=== PATIENT | female | born 1965 | race Caucasian/White ===

== ENCOUNTER → 2017-12-22 | Outpatient (REF) | payer MEDICARE ==
[2017-12-25 14:10] LABS: HPV HYBRID CAPTURE II Negative (Negative)
== END ==
LOC: M LAB REF 13:09
DX: Z12.4 Encounter for screening for malignant neoplasm of cervix (principal)
CPT/HCPCS: G0123

== ENCOUNTER → 2018-12-19 | Outpatient (REF) | payer MEDICARE ==
[~2018-12-19] MED LIST: ABIL1TAB13 PO; CELE40TA PO; DIVA1CAP PO; GEMF600T5 PO; HYDR-3713 PO; LISI10TA4 PO; METF500T13 PO; METO1TAB7 PO; METO50TA7 PO; OMEP40CA2 PO; PREG100CA PO; SPIR50TA4 PO; SYNT50TA PO; TIZA4CAP PO; TRAZ1TAB14 PO; WELL100T PO; WELL200T PO; vitaminD PO
[2018-12-19 15:12] LABS: CHLAMYDIA DNA AMPLIFICATION NEGATIVE (NEGATIVE); GC DNA AMPLIFICATION NEGATIVE (NEGATIVE)
== END ==
LOC: M LAB REF 12:55
PROVIDERS: ATTEND Advanced Practice Midwife
DX: Z11.3 Encounter for screening for infections with a predominantly sexual mode of transmission (principal)

== ENCOUNTER → 2018-12-19 | Outpatient (CLI) | payer MEDICARE ==
[2018-12-19 13:27] LABS: HCG, SERUM QUALITATIVE NEGATIVE (NEGATIVE)
[2018-12-21 00:07] LABS: HSV IgM TYPES 1&2 3.26 Ratio (0.00-0.90); HSV TYPE I IgG SPECIFIC 1.05 index (0.00-0.90)
== END ==
LOC: M SMT 10:07
PROVIDERS: ATTEND Advanced Practice Midwife
DX: Z11.3 Encounter for screening for infections with a predominantly sexual mode of transmission (principal); N95.0 Postmenopausal bleeding

== ENCOUNTER → 2019-02-21 | Outpatient (CLI) | payer MEDICARE ==
[~2019-02-21] MED LIST changes: +APRI0.37 PO; +ATOR1TAB21 PO; +BREO1INH INH; +BUDE3CAP PO; +D3 U5000 PO; +JANU100T PO; +[UNRECOGNIZED DRUG - CODE] PO
--- NOTE | 2019-02-22 08:45 | REP ---
REASON FOR EXAM: Kidney disease. PRIORS: None. FINDINGS: Multiple ultrasonographic images of the right kidney show the right kidney to measure 11.2 x 5.8 x 5.2 cm The renal cortical echotexture is unremarkable. There are no masses. There is good corticomedullary differentiation. There is no hydronephrosis. There are no perinephric fluid collections. Multiple ultrasonographic images of the left kidney show the left kidney to measure 11.1 x 4.7 x 5.2 cm. The renal cortical echotexture is unremarkable. There are no masses. There is good corticomedullary differentiation. There is no hydronephrosis. There are no perinephric fluid collections. Limited evaluation of the urinary bladder shows no gross abnormality. IMPRESSION: Unremarkable renal ultrasonography. Electronically Signed by Haim Lawson DO 02/22/2019 09:47 A
== END ==
LOC: M RAD 13:43
PROVIDERS: ATTEND Internal Medicine Nephrology
DX: N18.3 Chronic kidney disease, stage 3 (moderate) (principal)

== ENCOUNTER 2019-03-24 13:52 | Day surgery (SDC) | payer MEDICARE ==
[~2019-03-24] VITALS: Ht 162.6 cm; Wt 87.9 kg
[~2019-03-24 13:52] MED LIST changes: +LIDOCAINE 1% MDV 20ML VIAL SQ PRN; +LR 1,000 ML IV ONE; +XALA0.007 OU
[2019-03-24 14:28] LABS: HEMATOCRIT 42.3 % (36.0-47.0); HEMOGLOBIN 13.4 g/dl (12.0-15.5); MEAN CORPUSCULAR HEMOGLOBIN 27.2 pg (27.0-33.0); MEAN CORPUSCULAR HGB CONC 31.7 g/dl (32.0-36.5); MEAN CORPUSCULAR VOLUME 85.8 fl (80.0-96.0); PLATELET COUNT, AUTOMATED 363 10^3/uL (150-450); RED BLOOD COUNT 4.93 10^6/uL (4.00-5.40); WHITE BLOOD COUNT 11.4 10^3/uL (4.0-10.0)
[2019-03-24] MEDS ORDERED: fentaNYL 100 MCG/2 ML INJECTION (J3010) As Ordered ONE (15:26)
[2019-03-24] MEDS ORDERED: dexameTHASONE 4 MG/ML 1ML VIAL (J1100) As Ordered ONE (15:26)
[2019-03-24] MEDS ORDERED: MIDAZOLAM INJ 2 MG/2 ML VIAL (J2250) As Ordered ONE (15:26)
[2019-03-24] MEDS ORDERED: PROPOFOL 200 MG/20 ML VIAL As Ordered ONE (15:27)
[2019-03-24] MEDS ORDERED: LIDOCAINE 2% INJ 100 MG/5 ML SDV (FOR ANES.) As Ordered ONE (15:27)
[2019-03-24] MEDS ORDERED: ONDANSETRON 4MG/2ML VIAL (J2405) As Ordered ONE (15:27)
[2019-03-24] MEDS ORDERED: KETOROLAC 60 MG/2 ML VIAL (J1885) As Ordered ONE (16:18)
[2019-03-24] MEDS ORDERED: LR 1,000 ML IV SCH ×2 (17:00→17:15)
[2019-03-24] MEDS ORDERED: ONDANSETRON 4MG/2ML VIAL (J2405) IV PRN (17:00)
[2019-03-24] MEDS ORDERED: fentaNYL 100 MCG/2 ML INJECTION (J3010) IV PRN (17:00)
[2019-03-24] MEDS: PERCOCET 5MG/325MG TAB PO PRN ×3 (17:07→17:40)
[2019-03-24 19:00] VITALS: BP 112/61
--- NOTE | 2019-03-27 12:59 | RO ---
DATE OF PROCEDURE: 03/24/2019 PREOPERATIVE DIAGNOSIS: Postmenopausal bleeding. POSTOPERATIVE DIAGNOSIS: Postmenopausal bleeding. PROCEDURE PERFORMED: Hysteroscopy, dilation and curettage (D and C). SURGEON: Abhilash Montoya DO DECATIZER: None. ANESTHESIA TYPE: General via laryngeal mask airway (LMA) anesthesia. SPECIMENS SENT TO PATHOLOGY: 1. Endometrial biopsy by Pipelle. 2. Endometrial curettings. ESTIMATED BLOOD LOSS: 10 mL. FLUIDS REPLACED: 800 mL lactated Ringer. COMPLICATIONS: None. DRAINS: In-and-out catheter, 100 mL of urine output. PREOPERATIVE ANTIBIOTICS: None indicated. INDICATION: The patient is a 54-year-old with postmenopausal bleeding. The decision was made to proceed with a hysteroscopy, D and C under anesthesia after counseling in the office. INTRAOPERATIVE FINDINGS: Stenotic os. Uterus sounded to 7 cm. There was no mass on hysteroscopic examination. DESCRIPTION OF PROCEDURE: The patient was counseled and consented on the risks, benefits, indications, and alternatives of the procedure. Informed consent was obtained. She was taken to the operating room with an IV running, placed on the operating table in the dorsal supine position. General anesthesia was administered and airway secured without any difficulty. She was then placed in the high lithotomy position. She was prepared and draped in the normal sterile fashion. A time-out was performed per protocol. The bladder was drained with a sterile in-and-out catheter. The sterile speculum was placed with good visualization of the cervix. The anterior lip of the cervix was grasped with a single-tooth tenaculum, and downward traction was applied. The cervix was sounded to 7 cm. The cervix was sequentially dilated with Matias dilators up to a #18, and then hysteroscope was placed transcervically into the intrauterine cavity with findings noted above. Given the lack of findings, the hysteroscope was removed, and the EndoCell endometrial Pipelle was placed to the level of the fundus, and suction was applied to obtain endometrial tissue. This was done in multiple passes until an adequate amount of tissue was obtained. The Pipelle was removed. The curette was then placed transcervically into the intrauterine cavity, and a sharp curettage was performed throughout the cavity with minimal tissue return. A gritty texture was noted throughout the cavity. The curette was removed. Minimal bleeding from the cervical os was noted. The tenaculum was removed, and the tenaculum sites were noted to be hemostatic. All instruments were removed from the vagina, and sponge and instrument counts were correct per protocol. The patient tolerated the procedure very well. She was transferred to the postanesthesia care unit (PACU) in good and stable condition. LILIAN
== END 2019-03-24 19:10 | disposition home or self-care (01) ==
LOC: M SDC 13:52
PROVIDERS: ATTEND Obstetrics & Gynecology
DX: N95.0 Postmenopausal bleeding (principal); I10 Essential (primary) hypertension; E11.9 Type 2 diabetes mellitus without complications; E78.5 Hyperlipidemia, unspecified; K21.9 Gastro-esophageal reflux disease without esophagitis; G47.30 Sleep apnea, unspecified; F41.9 Anxiety disorder, unspecified; F32.9 Major depressive disorder, single episode, unspecified; G43.909 Migraine, unspecified, not intractable, without status migrainosus; Z79.899 Other long term (current) drug therapy; Z79.84 Long term (current) use of oral hypoglycemic drugs
CPT/HCPCS: 36415; 58558; 85027; 86850; 86900; 86901; 88305; J1100; J1885; J2250; J2405; J3010

== ENCOUNTER → 2020-01-31 | Outpatient (REF) | payer MEDICARE, OTHER ==
[~2020-01-31] MED LIST changes: -LIDOCAINE 1% MDV 20ML VIAL SQ PRN; -LR 1,000 ML IV ONE; -OMEP40CA2 PO; +OMEP40CA97 PO
== END ==
LOC: M LAB REF 11:53
PROVIDERS: ATTEND Ophthalmology
DX: H02.413 Mechanical ptosis of bilateral eyelids (principal)

== ENCOUNTER → 2020-04-12 | Outpatient (CLI) | payer MEDICARE ==
--- NOTE | 2020-04-12 11:15 | REPMRS ---
Patient History Patient is postmenopausal. No known family history of cancer. 3D TOMOSYNTHESIS WAS PERFORMED. [facility] lifetime risk for breast cancer is 8.5%. VOLSANJUANAA DENSITY B. Digital Woman Screen Mammo: April 12, 2020 - Exam #: [id number] Bilateral CC and MLO view(s) were taken. Technologist: Marta Urrutia, Technologist Prior study comparison: February 2019, bilateral digital mammo screening bilat, performed at [facility]. FINDINGS: There are scattered fibroglandular densities. There has been no change in the appearance of the mammogram from the prior studies. There is a mild amount of residual fibroglandular tissue which is fairly symmetric. There is no interval development of dominant mass, architectural distortion, or clustered microcalcification suggestive of malignancy. Assessment: BI-RADS/ACR category 1 mammogram. Negative Mammogram. Recommendation Routine screening mammogram in 1 year (for women over age 40). This mammogram was interpreted with the aid of an FDA-approved computer-aided dectection system. Electronically Signed By: Teddy Up MD 04/12/20 [id number]
== END ==
LOC: M WHC 09:13
PROVIDERS: ATTEND Obstetrics & Gynecology
DX: Z01.419 Encounter for gynecological examination (general) (routine) without abnormal findings (principal); Z12.31 Encounter for screening mammogram for malignant neoplasm of breast; Z78.0 Asymptomatic menopausal state
CPT/HCPCS: 77063; 77067; 87624; G0101; G0123

== ENCOUNTER → 2020-04-12 | Outpatient (REF) | payer MEDICARE | LOC: M SFHCWAGY 13:07 | PROVIDERS: ATTEND Obstetrics & Gynecology | DX: Z12.4 Encounter for screening for malignant neoplasm of cervix (principal); R87.612 Low grade squamous intraepithelial lesion on cytologic smear of cervix (LGSIL) | CPT/HCPCS: 87624; G0123 ==

== ENCOUNTER → 2020-11-18 | Outpatient (REF) | payer MEDICARE ==
[~2020-11-18] MED LIST changes: +LISI10TA22 PO; -LISI10TA4 PO
== END ==
LOC: M SMT 13:01
PROVIDERS: ATTEND Urology
DX: R31.29 Other microscopic hematuria (principal)
CPT/HCPCS: 81002; 87086; G0463

== ENCOUNTER → 2020-12-10 | Outpatient (REF) | payer MEDICARE ==
[2020-12-10 14:28] LABS: APPEARANCE, URINE CLEAR (CLEAR); BACTERIA, URINE AUTO NEGATIVE (NEGATIVE); BILIRUBIN, URINE AUTO NEGATIVE (NEGATIVE); BLOOD, URINE BLOOD NEGATIVE (NEGATIVE); COLOR, URINE YELLOW (YELLOW); GLUCOSE, URINE (UA) AUTO NEGATIVE (NEGATIVE); KETONE, URINE AUTO NEGATIVE (NEGATIVE); LEUKOCYTE ESTERASE, URINE AUTO 2+ (NEGATIVE); NITRITE, URINE AUTO NEGATIVE (NEGATIVE); PROTEIN, URINE AUTO NEGATIVE (NEGATIVE); RBC, URINE AUTO 1 /HPF (0-3); SPECIFIC GRAVITY URINE AUTO 1.008 (1.002-1.035); SQUAMOUS EPITHELIAL CELL UR AU 1 /HPF (0-6); UROBILINOGEN, URINE AUTO 0.2 mg/dL (0.0-2.0); WBC, URINE AUTO 5 /HPF (0-3)
== END ==
LOC: M SMT 13:53
PROVIDERS: ATTEND Nurse Practitioner Women's Health
DX: R31.29 Other microscopic hematuria (principal)
CPT/HCPCS: 81001; 87086; G0463

== ENCOUNTER → 2020-12-18 | Outpatient (REF) | payer MEDICARE ==
[2020-12-18 19:20] LABS: PERCENT SATURATION 9.3 % (13.2-45.0)
== END ==
LOC: M LAB REF 16:58
PROVIDERS: ATTEND Nurse Practitioner Family
DX: D50.9 Iron deficiency anemia, unspecified (principal)

== ENCOUNTER 2020-12-24 12:47 | Outpatient (CLI) | payer MEDICARE ==
[~2020-12-24] VITALS: Ht 162.6 cm; Wt 90.0 kg
[~2020-12-24 12:47] MED LIST changes: +ALBUTEROL SULFATE 2.5 MG/0.5 ML INH NEB SOLN INH PRN; +EPINEPHrine INJ 1 MG/ML 1ML AMP IM PRN; +diphenhydrAMINE 50MG/ML VIAL (J1200) IV PRN; +methylPREDNISolone 125MG 2ML VIAL IV PRN
[2020-12-24] MEDS ORDERED: IRON SUCROSE 25 MG in NS 25 ML IV ONE (13:00)
[2020-12-24] MEDS ORDERED: IRON SUCROSE 200 MG in NS 200 ML IV ONE (13:00)
[2020-12-24 13:15] VITALS: BP 136/68
[2020-12-24 16:05] VITALS: BP 129/82
== END 2020-12-24 16:04 | disposition home or self-care (01) ==
LOC: M INFU 12:47
PROVIDERS: ATTEND Internal Medicine Nephrology
DX: D50.9 Iron deficiency anemia, unspecified (principal); Z79.899 Other long term (current) drug therapy
CPT/HCPCS: 96365; J1756

== ENCOUNTER → 2021-05-05 | Outpatient (CLI) | payer MEDICARE ==
[~2021-05-05] MED LIST changes: -ALBUTEROL SULFATE 2.5 MG/0.5 ML INH NEB SOLN INH PRN; -EPINEPHrine INJ 1 MG/ML 1ML AMP IM PRN; +OMEP40CA4 PO; -OMEP40CA97 PO; -diphenhydrAMINE 50MG/ML VIAL (J1200) IV PRN; -methylPREDNISolone 125MG 2ML VIAL IV PRN
--- NOTE | 2021-05-05 13:35 | REPMRS ---
Patient History The patient states she had a clinical breast exam in April 2021. No known family history of cancer. Patient states no breast complaints today. Patient has signed MRS History Sheet. Digital Woman Screen Mammo: May 05, 2021 - Exam #: [id number] Bilateral CC and MLO view(s) were taken. Technologist: Nancy Jones, Technologist Prior study comparison: April 12, 2020, bilateral digital woman screen mammo performed at [facility]. February 2019, bilateral digital mammo screening bilat, performed at [facility]. FINDINGS: There are scattered fibroglandular densities. Screening. Digital screening (2D) mammography was performed bilaterally in the CC and MLO projections. Additionally, breast tomosynthesis (3D mammography) was performed bilaterally in the CC and MLO projections. Todays exam was compared to the prior exam/exams. By history, the patient has no complaints of a palpable breast abnormality or other significant breast complaints. The Volpara volumetric breast density category is B, there are scattered areas of fibroglandular densities. The breasts are unchanged in size and shape. There are no abhi-soft tissue densities or spiculated masses. There is no internal architectural distortion. There are no suspicious abhi-calcific clusters. Skin thickening or nipple retraction is not present. IMPRESSION: BI-RADS Category 2- Benign Findings. There is no evidence of malignant alteration of the breasts. Followup examination recommended in one year. This mammogram was read with the assistance of [employer],an FDA approved computer aided detection system for mammography. The lifetime Tyrer-Cuzick score is 8.3% Negative x-ray reports should not delay surgical consultation if a dominant or clinically suspicious mass is present. Not all breast cancers can be identified by mammography. Therefore, we recommend that you continue to perform regular breast self-examination and physical examination and then promptly contact your physician of any concerns or changes. Adenosis and dense breasts may obscure an underlying neoplasm. No significant changes when compared with prior studies. Assessment: BI-RADS/ACR category 2 mammogram. Benign Findings. Recommendation Routine screening mammogram of both breasts in 1 year. Electronically Signed By: Juan Bragg MD 05/05/21 [id number]
== END ==
LOC: M WHC 10:05
PROVIDERS: ATTEND Obstetrics & Gynecology
DX: Z12.31 Encounter for screening mammogram for malignant neoplasm of breast (principal); Z12.4 Encounter for screening for malignant neoplasm of cervix; R87.618 Other abnormal cytological findings on specimens from cervix uteri
CPT/HCPCS: 77063; 77067; 87624; G0101; G0123

== ENCOUNTER → 2021-05-05 | Outpatient (REF) | payer MEDICARE | LOC: M SFHCWAGY 13:21 | PROVIDERS: ATTEND Obstetrics & Gynecology | DX: Z12.4 Encounter for screening for malignant neoplasm of cervix (principal); R87.618 Other abnormal cytological findings on specimens from cervix uteri ==

== ENCOUNTER → 2021-05-14 | Outpatient (REF) | payer MEDICARE | LOC: M LAB REF 13:10 | PROVIDERS: ATTEND Nurse Practitioner Family | DX: E83.42 Hypomagnesemia (principal) ==

== ENCOUNTER → 2021-11-26 | Outpatient (CLI) | payer MEDICARE ==
[~2021-11-26] MED LIST changes: +DIVA125C6 PO; -DIVA1CAP PO
[2021-11-26 14:23] LABS: APPEARANCE, URINE CLEAR (CLEAR); BACTERIA, URINE AUTO NEGATIVE (NEGATIVE); BILIRUBIN, URINE AUTO NEGATIVE (NEGATIVE); BLOOD, URINE BLOOD NEGATIVE (NEGATIVE); COLOR, URINE YELLOW (YELLOW); GLUCOSE, URINE (UA) AUTO NEGATIVE (NEGATIVE); KETONE, URINE AUTO NEGATIVE (NEGATIVE); LEUKOCYTE ESTERASE, URINE AUTO TRACE (NEGATIVE); NITRITE, URINE AUTO NEGATIVE (NEGATIVE); PROTEIN, URINE AUTO NEGATIVE (NEGATIVE); RBC, URINE AUTO 1 /HPF (0-3); SPECIFIC GRAVITY URINE AUTO 1.017 (1.002-1.035); SQUAMOUS EPITHELIAL CELL UR AU 1 /HPF (0-6); UROBILINOGEN, URINE AUTO 0.2 mg/dL (0.0-2.0); WBC, URINE AUTO 3 /HPF (0-3)
[2021-11-26 14:27] LABS: BASO # 0.1 10^3/uL (0.0-0.2); BASO % 1.1 % (0.0-1.0); EOS # 0.8 10^3/uL (0.0-0.5); EOS % 9.4 % (0.0-3.0); HEMATOCRIT 41.3 % (36.0-47.0); HEMOGLOBIN 12.9 g/dl (12.0-15.5); LYMPH % 36.9 % (24.0-44.0); MEAN CORPUSCULAR HEMOGLOBIN 28.3 pg (27.0-33.0); MEAN CORPUSCULAR HGB CONC 31.2 g/dl (32.0-36.5); MEAN CORPUSCULAR VOLUME 90.6 fl (80.0-96.0); MONO # 0.8 10^3/uL (0.0-0.8); MONO % 9.5 % (2.0-8.0); NEUTROPHILS # 3.5 10^3/uL (1.5-8.5); NEUTROPHILS % 42.6 % (36.0-66.0); PLATELET COUNT, AUTOMATED 220 10^3/uL (150-450); RED BLOOD COUNT 4.56 10^6/uL (4.00-5.40); WHITE BLOOD COUNT 8.1 10^3/uL (4.0-10.0)
[2021-11-26 14:56] LABS: ALBUMIN 3.7 GM/DL (3.2-5.2); ALT/SGPT 20 U/L (12-78); BILIRUBIN,TOTAL 0.4 MG/DL (0.2-1.0); BLOOD UREA NITROGEN 19 MG/DL (7-18); CALCIUM LEVEL 9.5 MG/DL (8.5-10.1); CARBON DIOXIDE LEVEL 30 MEQ/L (21-32); CHLORIDE LEVEL 105 MEQ/L (98-107); COMPLEMENT C3 131 MG/DL (90-180); COMPLEMENT C4 34 MG/DL (10-40); CREATININE FOR GFR 1.02 MG/DL (0.55-1.30); GLOMERULAR FILTRATION RATE 59.5 (>51); GLUCOSE, FASTING 78 MG/DL (70-100); POTASSIUM SERUM 4.5 MEQ/L (3.5-5.1); RHEUMATOID FACTOR QUANT < 10.0 IU/ML (<15.0); SODIUM LEVEL 141 MEQ/L (136-145)
[2021-11-26 14:58] LABS: ERYTHROCYTE SEDIMENTATION RATE 8 mm/hr (0-30)
[2021-11-26 15:44] LABS: HIV 1&2 SCREEN CENTAUR NEGATIVE (NEGATIVE)
[2021-12-01 13:07] LABS: ANA (HEP2) Positive (.)
== END ==
LOC: M PLAIMG 09:16
PROVIDERS: ATTEND Physician Assistant
DX: D69.2 Other nonthrombocytopenic purpura (principal); J45.21 Mild intermittent asthma with (acute) exacerbation

== ENCOUNTER → 2022-02-24 | Outpatient (CLI) | payer MEDICARE | LOC: M RAD 13:42 | PROVIDERS: ATTEND Obstetrics & Gynecology | DX: N83.291 Other ovarian cyst, right side (principal) ==

== ENCOUNTER → 2022-06-11 | Outpatient (CLI) | payer MEDICARE | LOC: M PLAIMG 10:21 | PROVIDERS: ATTEND Physician Assistant | DX: R06.02 Shortness of breath (principal) ==

== ENCOUNTER → 2022-07-29 | Outpatient (CLI) | payer MEDICARE | LOC: M WHC 07:36 | PROVIDERS: ATTEND Obstetrics & Gynecology | DX: Z12.31 Encounter for screening mammogram for malignant neoplasm of breast (principal) ==

== ENCOUNTER → 2022-07-29 | Outpatient (REF) | payer MEDICARE, OTHER | LOC: M PLALAB 15:45 | PROVIDERS: ATTEND Obstetrics & Gynecology | DX: Z12.4 Encounter for screening for malignant neoplasm of cervix (principal) | CPT/HCPCS: 87624; G0123 ==

== ENCOUNTER → 2022-08-03 | Outpatient (CLI) | payer MEDICARE ==
[~2022-08-03] MED LIST changes: +ISOVUE-300 61% 100ML VIAL ONE; +LIDOCAINE 1% MDV 20ML VIAL ONE; +methylPREDNISolone SUSP 40MG/ML 1ML VIAL (DEPO MEDROL) ONE
== END ==
LOC: M PLAIMG 12:52
PROVIDERS: ATTEND Physician Assistant Surgical
DX: M16.12 Unilateral primary osteoarthritis, left hip (principal)
CPT/HCPCS: 20610; 76000; Q9967

== ENCOUNTER → 2022-08-06 | Outpatient (CLI) | payer MEDICARE ==
[~2022-08-06] MED LIST changes: -ISOVUE-300 61% 100ML VIAL ONE; -LIDOCAINE 1% MDV 20ML VIAL ONE; -methylPREDNISolone SUSP 40MG/ML 1ML VIAL (DEPO MEDROL) ONE
== END ==
LOC: M CARPUL 09:56
PROVIDERS: ATTEND Physician Assistant
DX: R07.9 Chest pain, unspecified (principal); I35.0 Nonrheumatic aortic (valve) stenosis

== ENCOUNTER → 2022-10-20 | Outpatient (REF) | payer MEDICARE, OTHER | LOC: M SFHCPLAZ 09:53 | PROVIDERS: ATTEND Nurse Practitioner Family | DX: E11.22 Type 2 diabetes mellitus with diabetic chronic kidney disease (principal); I10 Essential (primary) hypertension; E78.5 Hyperlipidemia, unspecified; D50.9 Iron deficiency anemia, unspecified; E03.9 Hypothyroidism, unspecified ==

== ENCOUNTER 2024-02-02 06:09 | Day surgery (SDC) | payer MEDICARE ==
[~2024-02-02] VITALS: Ht 162.6 cm; Wt 103.7 kg
[~2024-02-02 06:09] MED LIST changes: +ARIP1TAB10 PO; +ATOR40TA75 PO; +BASA100I SC; +BRIN1TAB3 PO; +BUSP30TA PO; +DIVA250T67 PO; +FAMO20TA PO; +HUMI40KI SC; +IRON65TA2 PO; +LEVO50TA5 PO; +LISI2.5T9 PO; +METF750T36 PO; +METO1TAB32 PO; +MONT10TA97 PO; +PIOG1TAB37 PO; +PULM90IN DILUENT; +SPIR-10 PO; +TIZA10TA PO; +TRAZ-257 PO; +TRUL0.5I SC
[2024-02-02] MEDS ORDERED: MIDAZOLAM INJ 2MG/2ML VIAL As Ordered ONE (07:04)
[2024-02-02] MEDS ORDERED: fentaNYL 100 MCG/2 ML INJECTION As Ordered ONE (07:04)
[2024-02-02] MEDS: LIDOCAINE 3.5 % 1ML OPHTH TOPICAL GEL OU ONE (07:08)
[2024-02-02] MEDS ORDERED: TOBRADEX OPHTH OINT 3.5 GM As Ordered ONE (07:22)
[2024-02-02] MEDS: POVIDONE-IODINE 5% OPHTH PREP SOL 30ML As Ordered ONE (08:00)
[2024-02-02] MEDS: LIDOCAINE 1% SDV 5ML VIAL As Ordered ONE (08:06)
[2024-02-02] MEDS: mitoMYcin 0.2 MG/VIAL KIT FOR OPHTHALMIC USE As Ordered ONE (08:07)
[2024-02-02] MEDS: CEFUROXIME 1MG/0.1ML INTRACAMERAL INJ As Ordered ONE (08:07)
[2024-02-02 08:13] VITALS: BP 133/74; TEMP 97.7; O2SAT 96
== END 2024-02-02 08:40 | disposition home or self-care (01) ==
LOC: M SDC 06:09
PROVIDERS: ATTEND Ophthalmology
DX: H40.9 Unspecified glaucoma (principal); E11.22 Type 2 diabetes mellitus with diabetic chronic kidney disease; I12.9 Hypertensive chronic kidney disease with stage 1 through stage 4 chronic kidney disease, or unspecified chronic kidney disease; E03.9 Hypothyroidism, unspecified; N18.30 Chronic kidney disease, stage 3 unspecified; J45.909 Unspecified asthma, uncomplicated; Z79.4 Long term (current) use of insulin; Z79.899 Other long term (current) drug therapy; Z79.84 Long term (current) use of oral hypoglycemic drugs; Z79.890 Hormone replacement therapy; Z79.85 Long-term (current) use of injectable non-insulin antidiabetic drugs; Z79.51 Long term (current) use of inhaled steroids; E78.00 Pure hypercholesterolemia, unspecified; G47.30 Sleep apnea, unspecified
CPT/HCPCS: 66183; C1783; J2250; J3010; J7315

== ENCOUNTER → 2024-03-06 | Outpatient (CLI) | payer MEDICARE, OTHER | LOC: M PAIN 08:00 | PROVIDERS: ATTEND Nurse Practitioner Family | DX: M47.816 Spondylosis without myelopathy or radiculopathy, lumbar region (principal); M47.817 Spondylosis without myelopathy or radiculopathy, lumbosacral region; G89.29 Other chronic pain; E11.22 Type 2 diabetes mellitus with diabetic chronic kidney disease; N18.31 Chronic kidney disease, stage 3a; E03.9 Hypothyroidism, unspecified; G47.33 Obstructive sleep apnea (adult) (pediatric); F32.9 Major depressive disorder, single episode, unspecified; F40.01 Agoraphobia with panic disorder; E78.1 Pure hyperglyceridemia; K50.90 Crohn's disease, unspecified, without complications; I12.9 Hypertensive chronic kidney disease with stage 1 through stage 4 chronic kidney disease, or unspecified chronic kidney disease; M47.22 Other spondylosis with radiculopathy, cervical region; M54.50 Low back pain, unspecified; K21.9 Gastro-esophageal reflux disease without esophagitis; D50.9 Iron deficiency anemia, unspecified; Z79.4 Long term (current) use of insulin; Z79.890 Hormone replacement therapy; Z79.899 Other long term (current) drug therapy; Z88.8 Allergy status to other drugs, medicaments and biological substances ==

== ENCOUNTER → 2024-05-10 | Outpatient (REF) | payer MEDICARE, OTHER ==
[2024-05-12 14:48] LABS: HPV APTIMA Not Detected (Not Detected)
== END ==
LOC: M SFHCWAGY 13:16
PROVIDERS: ATTEND Obstetrics & Gynecology
DX: Z12.4 Encounter for screening for malignant neoplasm of cervix (principal)

== ENCOUNTER → 2024-05-10 | Outpatient (CLI) | payer MEDICARE | LOC: M WHC 09:46 | PROVIDERS: ATTEND Obstetrics & Gynecology | DX: Z12.31 Encounter for screening mammogram for malignant neoplasm of breast (principal); R92.323 Mammographic fibroglandular density, bilateral breasts ==

== ENCOUNTER → 2024-05-25 | Outpatient (CLI) | payer MEDICARE ==
[~2024-05-25] MED LIST changes: +BUDE90AE DILUENT; +ISOVUE-M 300 61% 15ML VIAL As Ordered ONE; +LIDOCAINE 1% SDV 30ML VIAL As Ordered ONE; -PULM90IN DILUENT; +TRIAMCINOLONE ACETONIDE SUSP 40MG/ML 1ML VIAL As Ordered ONE
== END ==
LOC: M PAIN 08:15
PROVIDERS: ATTEND Anesthesiology
DX: M47.816 Spondylosis without myelopathy or radiculopathy, lumbar region (principal); E11.22 Type 2 diabetes mellitus with diabetic chronic kidney disease; E03.9 Hypothyroidism, unspecified; G47.33 Obstructive sleep apnea (adult) (pediatric); F32.9 Major depressive disorder, single episode, unspecified; G89.29 Other chronic pain; I10 Essential (primary) hypertension; K50.90 Crohn's disease, unspecified, without complications; F40.01 Agoraphobia with panic disorder; D50.9 Iron deficiency anemia, unspecified; K21.9 Gastro-esophageal reflux disease without esophagitis; M47.22 Other spondylosis with radiculopathy, cervical region; Z79.4 Long term (current) use of insulin; Z79.891 Long term (current) use of opiate analgesic; Z79.890 Hormone replacement therapy; Z79.899 Other long term (current) drug therapy; Z88.8 Allergy status to other drugs, medicaments and biological substances
CPT/HCPCS: 64493; 64494; J0665; J3301; Q9967

== ENCOUNTER → 2024-06-26 | Outpatient (CLI) | payer MEDICARE ==
[~2024-06-26] MED LIST changes: -ISOVUE-M 300 61% 15ML VIAL As Ordered ONE; -LIDOCAINE 1% SDV 30ML VIAL As Ordered ONE; -TRIAMCINOLONE ACETONIDE SUSP 40MG/ML 1ML VIAL As Ordered ONE
== END ==
LOC: M PAIN 17:30
PROVIDERS: ATTEND Nurse Practitioner Family
DX: M47.816 Spondylosis without myelopathy or radiculopathy, lumbar region (principal); M47.817 Spondylosis without myelopathy or radiculopathy, lumbosacral region; G89.29 Other chronic pain; Z79.4 Long term (current) use of insulin; Z79.84 Long term (current) use of oral hypoglycemic drugs; Z79.85 Long-term (current) use of injectable non-insulin antidiabetic drugs; Z79.899 Other long term (current) drug therapy; Z88.8 Allergy status to other drugs, medicaments and biological substances

== ENCOUNTER → 2025-07-02 | Outpatient (CLI) | payer MEDICARE ==
[~2025-07-02] MED LIST changes: +PREG-35 PO; -PREG100CA PO
== END ==
LOC: M WHC 10:34
PROVIDERS: ATTEND Obstetrics & Gynecology
DX: Z12.31 Encounter for screening mammogram for malignant neoplasm of breast (principal); R92.323 Mammographic fibroglandular density, bilateral breasts

== ENCOUNTER → 2025-07-02 | Outpatient (REF) | payer MEDICARE ==
[2025-07-04 16:02] LABS: HPV APTIMA Not Detected (Not Detected)
== END ==
LOC: M SFHCWAGY 13:21
PROVIDERS: ATTEND Obstetrics & Gynecology
DX: Z12.4 Encounter for screening for malignant neoplasm of cervix (principal)
CPT/HCPCS: 87624; G0123